=== PATIENT | female | born 1960 | race Caucasian/White ===

== ENCOUNTER 2017-08-25 19:36 | Emergency (ER) | payer OTHER ==
[~2017-08-25] VITALS: Ht 160 cm; Wt 68.9 kg
== END 2017-08-25 21:33 | disposition home or self-care (01) ==
LOC: ER
DX: J06.9 Acute upper respiratory infection, unspecified (principal)

== ENCOUNTER → 2021-01-18 07:08 | Outpatient (CLI) | payer OTHER | END | disposition home or self-care (01) | LOC: LAB 07:08 | PROVIDERS: ATTEND Internal Medicine Cardiovascular Disease | DX: I10 Essential (primary) hypertension (principal); E11.9 Type 2 diabetes mellitus without complications; E03.8 Other specified hypothyroidism; E78.2 Mixed hyperlipidemia; D68.8 Other specified coagulation defects ==

== ENCOUNTER 2021-01-18 08:41 | Outpatient (CLI) | payer OTHER | END 2021-01-18 08:42 | disposition home or self-care (01) | LOC: NUCLEAR 08:41 | PROVIDERS: ATTEND Internal Medicine Cardiovascular Disease | DX: R07.89 Other chest pain (principal); I10 Essential (primary) hypertension; I49.9 Cardiac arrhythmia, unspecified ==

== ENCOUNTER 2021-06-18 14:34 | Emergency (ER) | payer OTHER ==
[~2021-06-18] VITALS: Ht 160 cm; Wt 74.4 kg
[2021-06-18] MEDS ORDERED: ALBUTEROL0.63 MG/3 (14:57)
[2021-06-18] MEDS ORDERED: BUDESONIDE0.5 MG/2 M IH (20:14)
[2021-06-18] MEDS ORDERED: TUSSIN DM CLEA118 M1 PO (20:14)
[2021-06-18] MEDS ORDERED: MACRODANTIN100 M1 PO (20:14)
[2021-06-18] MEDS ORDERED: PROAIR RESPICL90 MCG IH (20:14)
== END 2021-06-18 20:46 ==
LOC: ER 14:34
DX: U07.1 COVID-19 (principal); R10.31 Right lower quadrant pain; N20.0 Calculus of kidney; N39.0 Urinary tract infection, site not specified